=== PATIENT | female | born 1955 ===

== ENCOUNTER 2019-05-28 07:30 | Inpatient (IN) | payer OTHER ==
[~2019-05-28] VITALS: Ht 149.9 cm; Wt 62.6 kg
[2019-05-28] MEDS ORDERED: TOPROL XL25 M1 PO (10:40)
[2019-05-28] MEDS ORDERED: ALTACE5 MG PO (10:40)
[2019-05-28] MEDS ORDERED: [UNRECOGNIZED DRUG - OTHER] PO (10:41)
[2019-05-28] MEDS ORDERED: PRAVACHOL PO (10:41)
[2019-05-28] MEDS ORDERED: FAMOT PO (10:41)
[2019-05-28] MEDS ORDERED: SYSTANE 0.3-0.1 EACH OP (10:42)
[2019-05-28] MEDS ORDERED: AMBIEN10 MG PO (10:42)
[2019-05-28] MEDS ORDERED: COSOPT PF EYE1 EACH OP (10:43)
[2019-06-02] MEDS ORDERED: PRAVASTATIN SOD20 MG PO (09:37)
[2019-06-02] MEDS ORDERED: FAMOTIDINE40 MG PO (09:38)
[2019-06-02] MEDS ORDERED: CYMBALTA60 MG PO (09:39)
[2019-06-02] MEDS ORDERED: SYSTANE ULTRA 010 ML (09:40)
[2019-06-04] MEDS ORDERED: XARELTO10 MG PO (13:27)
[2019-06-04] MEDS ORDERED: INTEGRA PLUS C1 EACH PO (13:27)
[2019-06-04] MEDS ORDERED: OXYC1TAB9 PO (13:27)
== END 2019-06-04 22:32 | DRG 470 ==
LOC: O/R 06-02 05:45 → SURG 06-02 05:45 → SURH 06-02 07:30 → SURG 06-02 18:00
PROVIDERS: ADMIT Orthopaedic Surgery Sports Medicine
PROC: 0SRC0J9 Replacement of Right Knee Joint with Synthetic Substitute, Cemented, Open Approach (ICD-10-PCS; principal; 2019-06-02 14:30)
DX: M17.11 Unilateral primary osteoarthritis, right knee (principal); I10 Essential (primary) hypertension